=== PATIENT | male | born 1970 | race Two or more races ===

== ENCOUNTER → 2024-01-20 | Outpatient (CLI) | payer MEDICAID ==
[2024-01-20 07:23] LABS: Urine Bacteria None Seen /hpf (None Seen)
[2024-01-20 07:38] LABS: Basophils # (auto) 0 10 ^3/uL (0-0.2); Basophils % (auto) 0.3 % (0.0-2.0); Eosinophils # (auto) 0.2 10 ^3/uL (0-0.8); Eosinophils % (auto) 1.4 % (0.0-7.0); Hematocrit 47.8 % (41.0-53.0); Hemoglobin 16.5 g/dL (13.5-17.5); Lymphocytes % (auto) 26.8 % (10.0-50.0); Mean Corpuscular Hemoglobin 30.4 pg (28.0-32.0); Mean Corpuscular Hgb Conc. 34.5 g/dL (32.0-36.0); Mean Corpuscular Volume 88.1 fL (80.0-100.0); Monocytes # (auto) 0.9 10 ^3/uL (0-1.3); Monocytes % (auto) 7.5 % (0.0-12.0); Neutrophils # (auto) 7.2 10 ^3/uL (1.6-8.6); Platelet Count (auto) 186 10^3/uL (140-450); Red Blood Cells 5.43 10^6/uL (4.5-5.90); Red Cell Distribution Width 13.3 % (11.8-14.3); Urine Blood Negative /uL (Negative); Urine Clarity Clear (Clear); Urine Color Yellow (Yellow); Urine Mucus FEW (None Seen); Urine Protein, UAD Negative (Negative); Urine Specific Gravity 1.025 (1.001-1.035); Urine Urobilinogen Normal (Negative); Urine WBC <1 /hpf (0 - 3); Urine pH 5.5 (5.0-9.0); White Blood Cell 11.3 10^3/uL (4.4-10.8)
[2024-01-20 08:02] LABS: Alanine Aminotransferase 60 U/L (7-40); Albumin 4.6 g/dL (3.2-4.8); Alkaline Phosphatase 87 U/L (46-116); Anion Gap 5 (5-15); Aspartate Aminotransferase 22 U/L (13-40); BUN/Creatinine Ratio 10.3 (10.0-20.0); Bilirubin, Total 0.9 mg/dL (0.2-1.0); Blood Urea Nitrogen 9 mg/dL (9-23); Calcium 9.6 mg/dL (8.7-10.4); Carbon Dioxide 28 mmol/L (20-31); Chloride 109 mmol/L (98-107); Cholesterol 184 mg/dL (< 200); Glucose 109 mg/dL (74-106); HDL Cholesterol 50 mg/dL (40-59); LDL Cholesterol 115 mg/dL (< 100); Potassium 4.3 mmol/L (3.5-5.1); Sodium 142 mmol/L (136-145); Triglycerides 164 mg/dL (< 150)
[2024-01-20 08:03] LABS: Total Protein 7.3 g/dL (5.7-8.2)
[2024-01-20 11:15] LABS: Prostate Specific Antigen 0.53 ng/mL (0.0-4.0)
== END | disposition home or self-care (01) ==
LOC: LAB 07:10
DX: I10 Essential (primary) hypertension (principal); Z86.73 Personal history of transient ischemic attack (TIA), and cerebral infarction without residual deficits
CPT/HCPCS: 36415; 80053; 80061; 81001; 82043; 82274; 82306; 82607; 83036; 84153; 84443; 85025

== ENCOUNTER → 2024-02-21 | Outpatient (CLI) | payer MEDICAID ==
[2024-02-21 09:38] LABS: Anion Gap 5 (5-15); Carbon Dioxide 29 mmol/L (20-31); Chloride 108 mmol/L (98-107); Potassium 4.4 mmol/L (3.5-5.1); Sodium 142 mmol/L (136-145)
[2024-02-21 09:39] LABS: Calcium 9.7 mg/dL (8.7-10.4)
[2024-02-21 09:43] LABS: Glucose 104 mg/dL (74-106)
[2024-02-21 09:44] LABS: BUN/Creatinine Ratio 8.7 (10.0-20.0); Blood Urea Nitrogen 8 mg/dL (9-23)
== END | disposition home or self-care (01) ==
LOC: LAB 08:38
PROVIDERS: ATTEND Internal Medicine
DX: I10 Essential (primary) hypertension (principal)
CPT/HCPCS: 36415; 80048

== ENCOUNTER → 2024-02-22 | Outpatient (CLI) | payer MEDICAID ==
[2024-02-22 06:39] LABS: Urine Bacteria None Seen /hpf (None Seen)
[2024-02-22 07:03] LABS: Urine Blood Negative /uL (Negative); Urine Clarity Clear (Clear); Urine Color Light-Yellow (Yellow); Urine Mucus FEW (None Seen); Urine Protein, UAD Negative (Negative); Urine Specific Gravity 1.016 (1.001-1.035); Urine Urobilinogen Normal (Negative); Urine WBC <1 /hpf (0 - 3); Urine pH 5.5 (5.0-9.0)
[2024-02-22 07:12] LABS: Basophils # (auto) 0 10 ^3/uL (0-0.2); Basophils % (auto) 0.3 % (0.0-2.0); Eosinophils # (auto) 0.2 10 ^3/uL (0-0.8); Eosinophils % (auto) 2.7 % (0.0-7.0); Hematocrit 43.9 % (41.0-53.0); Hemoglobin 15.3 g/dL (13.5-17.5); Lymphocytes # (auto) 3.3 10 ^3/uL (0.4-5.4); Lymphocytes % (auto) 42.8 % (10.0-50.0); Mean Corpuscular Hemoglobin 30.9 pg (28.0-32.0); Mean Corpuscular Hgb Conc. 34.8 g/dL (32.0-36.0); Mean Corpuscular Volume 88.8 fL (80.0-100.0); Monocytes # (auto) 0.7 10 ^3/uL (0-1.3); Neutrophils # (auto) 3.5 10 ^3/uL (1.6-8.6); Neutrophils % (auto) 45.2 % (37.0-80.0); Nucleated Red Blood Cells % 0.1 %; Platelet Count (auto) 188 10^3/uL (140-450); Red Blood Cells 4.94 10^6/uL (4.5-5.90); Red Cell Distribution Width 13.3 % (11.8-14.3); White Blood Cell 7.8 10^3/uL (4.4-10.8)
[2024-02-22 07:27] LABS: Anion Gap 7 (5-15); Calcium 9.8 mg/dL (8.7-10.4); Carbon Dioxide 27 mmol/L (20-31); Chloride 107 mmol/L (98-107); Sodium 141 mmol/L (136-145)
[2024-02-22 07:33] LABS: Blood Urea Nitrogen 7 mg/dL (9-23); Cholesterol 162 mg/dL (< 200); Glucose 105 mg/dL (74-106); Triglycerides 116 mg/dL (< 150)
[2024-02-22 07:34] LABS: LDL Cholesterol 94 mg/dL (< 100)
[2024-02-22 07:35] LABS: HDL Cholesterol 50 mg/dL (40-59)
[2024-02-22 12:36] LABS: Prostate Specific Antigen 0.53 ng/mL (0.0-4.0)
== END | disposition home or self-care (01) ==
LOC: LAB 06:23
PROVIDERS: ATTEND Internal Medicine
DX: E78.2 Mixed hyperlipidemia
CPT/HCPCS: 36415; 80048; 80061; 81001; 82306; 82607; 83036; 84153; 85025

== ENCOUNTER → 2024-06-19 | Outpatient (CLI) | payer MEDICAID ==
[2024-06-19 06:24] LABS: Urine Bacteria None Seen /hpf (None Seen)
[2024-06-19 06:32] LABS: Basophils # (auto) 0 10 ^3/uL (0-0.2); Basophils % (auto) 0.6 % (0.0-2.0); Eosinophils # (auto) 0.1 10 ^3/uL (0-0.8); Hemoglobin 15.8 g/dL (13.5-17.5); Lymphocytes # (auto) 2.8 10 ^3/uL (0.4-5.4); Lymphocytes % (auto) 38.1 % (10.0-50.0); Mean Corpuscular Hemoglobin 30.5 pg (28.0-32.0); Mean Corpuscular Hgb Conc. 34.4 g/dL (32.0-36.0); Mean Corpuscular Volume 88.6 fL (80.0-100.0); Monocytes # (auto) 0.7 10 ^3/uL (0-1.3); Monocytes % (auto) 8.9 % (0.0-12.0); Neutrophils # (auto) 3.7 10 ^3/uL (1.6-8.6); Neutrophils % (auto) 50.4 % (37.0-80.0); Platelet Count (auto) 182 10^3/uL (140-450); Red Blood Cells 5.19 10^6/uL (4.5-5.90); Red Cell Distribution Width 12.7 % (11.8-14.3); White Blood Cell 7.4 10^3/uL (4.4-10.8)
[2024-06-19 07:08] LABS: Partial Thromboplastin Time 27.9 SEC (24.5-34.5); Prothrombin Time 10.6 sec (9.3-11.8)
[2024-06-19 07:37] LABS: Albumin 4.7 g/dL (3.2-4.8); Alkaline Phosphatase 76 U/L (46-116); Anion Gap 7 (5-15); Aspartate Aminotransferase 21 U/L (13-40); Blood Urea Nitrogen 11 mg/dL (9-23); Calcium 9.6 mg/dL (8.7-10.4); Carbon Dioxide 28 mmol/L (20-31); Chloride 105 mmol/L (98-107); Cholesterol 145 mg/dL (< 200); HDL Cholesterol 43 mg/dL (40-59); LDL Cholesterol 82 mg/dL (< 100); Potassium 3.9 mmol/L (3.5-5.1); Sodium 140 mmol/L (136-145); Triglycerides 95 mg/dL (< 150)
[2024-06-19 07:38] LABS: Bilirubin, Total 0.7 mg/dL (0.2-1.0)
[2024-06-19 07:39] LABS: Alanine Aminotransferase 41 U/L (7-40); Glucose 112 mg/dL (74-106)
[2024-06-19 08:23] LABS: Urine Blood Negative /uL (Negative); Urine Clarity Clear (Clear); Urine Color Yellow (Yellow); Urine Protein, UAD Negative (Negative); Urine Specific Gravity 1.021 (1.001-1.035); Urine Squamous Epithelial Cell None Seen /hpf (<5); Urine Urobilinogen Normal (Negative); Urine WBC < 1 /HPF (0-3); Urine pH 5.5 (5.0-9.0)
[2024-06-19 10:49] LABS: Prostate Specific Antigen 0.55 ng/mL (0.0-4.0)
== END | disposition home or self-care (01) ==
LOC: LAB 06:05
PROVIDERS: ATTEND Internal Medicine
DX: R29.898 Other symptoms and signs involving the musculoskeletal system (principal); E78.2 Mixed hyperlipidemia; R79.1 Abnormal coagulation profile; D64.9 Anemia, unspecified; Z86.73 Personal history of transient ischemic attack (TIA), and cerebral infarction without residual deficits; I48.0 Paroxysmal atrial fibrillation; I11.0 Hypertensive heart disease with heart failure; I50.9 Heart failure, unspecified; Z79.899 Other long term (current) drug therapy
CPT/HCPCS: 36415; 80053; 80061; 81001; 82607; 83036; 83880; 84153; 84443; 85025; 85610; 85730

== ENCOUNTER → 2024-06-28 | Outpatient (CLI) | payer MEDICAID ==
[2024-06-28 09:03] LABS: Chloride 104 mmol/L (98-107); Potassium 4.1 mmol/L (3.5-5.1); Sodium 139 mmol/L (136-145)
[2024-06-28 09:04] LABS: Anion Gap 6 (5-15); Carbon Dioxide 29 mmol/L (20-31)
[2024-06-28 09:09] LABS: BUN/Creatinine Ratio 9.2 (10.0-20.0); Glucose 105 mg/dL (74-106)
[2024-06-28 09:21] LABS: Blood Urea Nitrogen 9 mg/dL (9-23)
== END | disposition home or self-care (01) ==
LOC: LAB 08:34
PROVIDERS: ATTEND Internal Medicine Interventional Cardiology
DX: I48.0 Paroxysmal atrial fibrillation (principal)
CPT/HCPCS: 36415; 80048

== ENCOUNTER 2024-08-09 06:45 | Inpatient (IN) | payer MEDICAID ==
[~2024-08-09] VITALS: Ht 180.3 cm; Wt 98.8 kg
--- NOTE | 2024-08-09 06:58 | ED.PDOC ---
GI ASSESSMENT HPI Comments 54 year old male PRAKASH presents to the ED with chief complaint of abdominal pain. Patient reports that he has been experiencing diffuse abdominal pain with associated nausea, vomiting, headache, and dizziness for the past 4 days, worsening around 5:30am this morning. Patient relays that he has history of CVA with no deficits noted. Patient denies any diarrhea, fever, chills, chest pain, hematemesis, or melena. Chief Complaint: Abdominal Pain Time Seen by MD: 06:56 Reviewed Notes: Nurses Notes, Occupational Therapist Home Based Notes, Medications, Allergies Allergies: Coded Allergies: NO KNOWN ALLERGIES (Unverified , 08/09/24) Home Meds Reported Medications Lisinopril (Lisinopril) 5 Mg Tab, 1 TAB PO DAILY 08/09/24 Atorvastatin Calcium (ATORVASTATIN CALCIUM) 40 Mg Tab, 1 TAB PO DAILY 08/09/24 Fluoxetine Hcl (Fluoxetine Hcl) 20 Mg Cap, 1 CAP PO DAILY 08/09/24 Apixaban Base (ELIQUIS) 5 Mg Tab, 1 TAB PO BID 08/09/24 Information Source: Patient, Emergency Med Personnel Mode of Arrival: EMS Timing: Days Duration: Since onset Prehospital treatment: None Quality: Aching Vomitus: Watery Stool: Normal Severity: Moderate Recent: None Recent Hx of: None Pain Location: Diffuse Modifying Factors: Nothing Associated sign and symptoms: Nausea, Vomiting, Abdominal Pain Past Medical History PAST MEDICAL HISTORY: CVA, High Lipids, HTN Surgical History: Denies all surgeries Family History Family History: Reviewed,noncontributory to illness Social History Smoker: Non-Smoker Alcohol: Denies ETOH Use Drugs: Denies Drug Use Lives In: Home Constitutional: denies: chills, diaphoresis, fatigue, fever, malaise, sweats, weakness, others EENTM: denies: blurred vision, double vision, ear bleeding, ear discharge, ear drainage, ear pain, ear ringing, eye pain, eye redness, hearing loss, mouth pain, mouth swelling, nasal discharge, nose bleeding, nose congestion, nose pain, photophobia, tearing, throat pain, throat swelling, voice changes, others Respiratory: denies: cough, hemoptysis, orthopnea, SOB at rest, shortness of breath, SOB with excertion, stridor, wheezing, others Cardiovascular: denies: chest pain, dizzy spells, diaphoresis, Dyspnea on exertion, edema, irregular heart beat, left arm pain, lightheadedness, palpitations, PND, syncope, others Gastrointestinal: reports: abdominal pain, nausea, vomiting; denies: abdomen distended, blood streaked bowels, constipated, diarrhea, dysphagia, difficulty swallowing, hematemesis, melena, poor appetite, poor fluid intake, rectal bleeding, rectal pain, others Genitourinary: denies: burning, dysuria, flank pain, frequency, hematuria, incontinence, penile discharge, penile sore, pain, testicle pain, testicle swelling, urgency, others Neurological: reports: dizziness, headache; denies: fainting, left sided numbness, left sided weakness, numbness, paresthesia, pre-existing deficit, right sided numbness, right sided weakness, seizure, speech problems, tingling, tremors, weakness, others Musculoskeletal: denies: back pain, gout, joint pain, joint swelling, muscle pain, muscle stiffness, neck pain, others Integumetry: denies: bruises, change in color, change in hair/nails, dryness, laceration, lesions, lumps, rash, wounds, others Allergic/Immunocompromised: denies: Difficulty Healing, Frequent Infections, Hives, Itching, others Hematologic/Lymphatic: denies: anemia, blood clots, easy bleeding, easy bruising, swollen glands, others Endocrine: denies: excessive hunger, excessive sweating, excessive thirst, excessive urination, flushing, intolerance to cold, intolerance to heat, unexplained weight gain, unexplained weight loss, others Psychiatric: denies: anxiety, bipolar disorder, depression, hopeless, panic disorder, schizophrenia, sleepless, suicidal, others All Other Systems: Reviewed and Negative Physical Exam General Appearance: Moderate Distress, Normal HEENT: Normal ENT Inspection, PERRL/EOMI Neck: Full Range of Motion, Non-Tender, Normal, Normal Inspection Respiratory: Chest Non-Tender, Lungs Clear, No Accessory Muscle Use, No Respiratory Distress, Normal Breath Sounds Cardiovascular: No Edema, No JVD, No Murmur, No Gallop, Normal Peripheral Pulses, Regular Rate/Rhythm Breast Exam: Deferred Gastrointestinal: No Organomegaly, Non Tender, No Pulsatile Mass, Normal Bowel Sounds, Soft Genitalia: Deferred Pelvic: Deferred Rectal: Deferred Extremities: No calf tenderness, Normal capillary refill, Normal inspection, Normal range of motion, Non-tender, No pedal edema Musculoskeletal : Apperance: Normal Neurologic: Alert, devops consultant II-XII nml as Tested, No Motor Deficits, Normal Affect, Normal Mood, No Sensory Deficits Cerebellar Function: NOT DONE Reflexes: NOT DONE Skin: Dry, Normal Color, Warm Peripheral Pulses: 3+ Radial (R), 3+ Radial (L) Lymphatic: No Adenopathy Was a procedure done? Was a procedure done?: No GI differential Dx Differential Diagnosis: Constipation, Diverticular disease, Esophagitis, Gastritis/PUD, Gastroenteritis, Dehydration, Electrolyte Imbalance, Food Poisoning, Bacterial, Viral X-Ray, Labs, Meds, VS Vital Signs Date Time Temp Pulse Resp B/P (MAP) Pulse Ox O2 Delivery O2 Flow Rate FiO2 08/09/24 09:49 57 17 127/74 08/09/24 09:35 97.5 57 17 127/74 (91) 97 97.5 08/09/24 09:20 Room Air* 0 21 08/09/24 06:55 96.3 60 18 133/88 (103) 96 96.3 Lab Test 08/09/24 07:06 Range/Units White Blood Count 12.1 H 4.4-10.8 10^3/uL Red Blood Count 5.49 4.5-5.90 10^6/uL Hemoglobin 16.6 13.5-17.5 g/dL Hematocrit 49.1 41.0-53.0 % Mean Corpuscular Volume 89.4 80.0-100.0 fL Mean Corpuscular Hemoglobin 30.3 28.0-32.0 pg Mean Corpuscular Hemoglobin Concent 33.9 32.0-36.0 g/dL Red Cell Distribution Width 12.7 11.8-14.3 % Platelet Count 182 140-450 10^3/uL Mean Platelet Volume 10.1 6.9-10.8 fL Neutrophils (%) (Auto) 52.4 37.0-80.0 % Lymphocytes (%) (Auto) 39.1 10.0-50.0 % Monocytes (%) (Auto) 6.4 0.0-12.0 % Eosinophils (%) (Auto) 1.7 0.0-7.0 % Basophils (%) (Auto) 0.4 0.0-2.0 % Neutrophils # (Auto) 6.3 1.6-8.6 10 ^3/uL Lymphocytes # (Auto) 4.7 0.4-5.4 10 ^3/uL Monocytes # (Auto) 0.8 0-1.3 10 ^3/uL Eosinophils # (Auto) 0.2 0-0.8 10 ^3/uL Basophils # (Auto) 0 0-0.2 10 ^3/uL Nucleated Red Blood Cells 0.0 % Sodium Level 141 136-145 mmol/L Potassium Level 3.1 L 3.5-5.1 mmol/L Chloride Level 109 H 98-107 mmol/L Carbon Dioxide Level 23 20-31 mmol/L Anion Gap 9 5-15 Blood Urea Nitrogen 11 9-23 mg/dL Creatinine 0.90 0.700-1.30 mg/dL Glomerular Filtration Rate Calc 100 >90 mL/min BUN/Creatinine Ratio 12.2 10.0-20.0 Serum Glucose 194 H 74-106 mg/dL Calcium Level 9.6 8.7-10.4 mg/dL Current Medications Medications (Trade) Dose Ordered Sig/Naomi Route Start Time Stop Time Status Last Admin Ondansetron HCl (Zofran) 4 mg ONCE ONCE IV 08/09/24 07:00 08/09/24 07:01 DC 08/09/24 09:41 Sodium Chloride 1,000 ml @ 1,000 mls/hr Q1H ONCE IVB 08/09/24 07:00 08/09/24 07:59 DC 08/09/24 09:42 Morphine Sulfate 4 mg ONCE ONCE IV 08/09/24 07:00 08/09/24 07:01 DC 08/09/24 09:49 Potassium Bicarbonate (Klor-Con/Ef) 25 meq ONCE ONCE PO 08/09/24 09:15 08/09/24 09:16 DC 08/09/24 09:41 Patient alert pain Complaining of dizziness nausea vomiting. Vitals stable. Moving all extremities. No sign of any stroke. Abdomen is soft nontender. Establish intravenous access. Was given fluids. Was given morphine. Was given Zofran. Continue to monitor. On re-evaluation he does have good muscle strength. Blood sugar elevated. Explained to the patient that he will be admitted for further workup. Time of 1ST Reevaluation: 07:56 Reevaluation 1ST: Unchanged Patient Education/Counseling: Diagnosis, Treatment Family Education/Counseling: No Family Present Additional Information The following tests were ordered, and results were reviewed by me: CBC, BMP Additional Information was gathered from interviewing the following independent historians: EMS I reviewed and agreed with the following test results read by other providers: None I discussed treatment and results with medical personnel and: patient Comprehensive systems review obtained and negative except for what is stated in the HPI. Departure 1 Departure Time of Disposition: 07:13 Impression: Primary Impression: Autonomic disorder Additional Impression: Uncontrolled diabetes mellitus Qualified Codes: E13.65 - Other specified diabetes mellitus with hyperglycemia Disposition: ADMITTED INPATIENT Admit to: Med Surg Condition: Guarded Comments Spoke to and examined patient at 0656, discussing treatment plan at this time. Spoke to the patient at 10:30 a.m. he stated that he is still dizzy can not ambulate. Has good muscle strength in all extremities. Critical Care Note Critical Care Time?: No Stability Stability form required: No Heart Score Heart Score: Heart Score Response (Comments) Value History N/A 0 EKG N/A 0 Age N/A 0 Risk Factors N/A 0 Troponin N/A 0 Total 0 I personally scribed for MALGORZATA EL MD ([email or web address]) on 08/09/24 at 06:58. Electronically submitted by Federico Shea ([email or web address]). MALGORZATA EL MD August 09, 2024 06:58
[2024-08-09 07:17] LABS: Basophils # (auto) 0 10 ^3/uL (0-0.2); Basophils % (auto) 0.4 % (0.0-2.0); Eosinophils # (auto) 0.2 10 ^3/uL (0-0.8); Eosinophils % (auto) 1.7 % (0.0-7.0); Hematocrit 49.1 % (41.0-53.0); Hemoglobin 16.6 g/dL (13.5-17.5); Lymphocytes # (auto) 4.7 10 ^3/uL (0.4-5.4); Lymphocytes % (auto) 39.1 % (10.0-50.0); Mean Corpuscular Hemoglobin 30.3 pg (28.0-32.0); Mean Corpuscular Hgb Conc. 33.9 g/dL (32.0-36.0); Mean Corpuscular Volume 89.4 fL (80.0-100.0); Monocytes # (auto) 0.8 10 ^3/uL (0-1.3); Monocytes % (auto) 6.4 % (0.0-12.0); Neutrophils # (auto) 6.3 10 ^3/uL (1.6-8.6); Neutrophils % (auto) 52.4 % (37.0-80.0); Platelet Count (auto) 182 10^3/uL (140-450); Red Blood Cells 5.49 10^6/uL (4.5-5.90); Red Cell Distribution Width 12.7 % (11.8-14.3); White Blood Cell 12.1 10^3/uL (4.4-10.8)
[2024-08-09 07:25] LABS: Sodium 141 mmol/L (136-145)
[2024-08-09 07:26] LABS: Anion Gap 9 (5-15); Carbon Dioxide 23 mmol/L (20-31)
[2024-08-09 07:27] LABS: Calcium 9.6 mg/dL (8.7-10.4)
[2024-08-09 07:31] LABS: BUN/Creatinine Ratio 12.2 (10.0-20.0); Blood Urea Nitrogen 11 mg/dL (9-23)
[2024-08-09 07:32] LABS: Chloride 109 mmol/L (98-107); Glucose 194 mg/dL (74-106); Potassium 3.1 mmol/L (3.5-5.1)
[2024-08-09] MEDS: POTASSIUM EFFERVESENT TAB 25 MEQ PO ONE (09:41)
[2024-08-09] MEDS: ONDANSETRON HCL 4 MG/2 ML VIAL IV ONE (09:41)
[2024-08-09] MEDS: SODIUM CHLORIDE 0.9% 1,000 ML IVB ONE (09:42)
[2024-08-09] MEDS: MORPHINE SULFATE 4 MG/ML SYR/VIAL IV ONE (09:49)
--- NOTE | 2024-08-09 11:07 | DVH ---
EXAM: CT HEAD WITHOUT CONTRAST HISTORY: tia COMPARISON: None TECHNIQUE: Axial images of the head were obtained and reformatted in coronal and sagittal planes. All CT scans at this medical facility are performed using dose modulation techniques as appropriate t o a performed exam including the following: Automated exposure control was utilized; adjustment of th e MA and/or KV according to patient size; and use of iterative reconstruction technique. CT Dose: CTDI volume is 60.67 mGy. Dose-length product is 1195.48 mGy*cm FINDINGS: There is no evidence of acute intracranial hemorrhage, mass, mass effect midline shift. There is no h ydrocephalus or extra-axial fluid collection. There is a chronic infarct in the superomedial right ce rebellum. Vega-white matter differentiation is otherwise maintained. The visualized paranasal sinuses and mastoid air cells are clear. The calvarium is intact. IMPRESSION: 1. No acute intracranial process. 2. Chronic infarct in the superomedial right cerebellum. HS:Y
[2024-08-09] MEDS ORDERED: HYDROcodone-ACET 5/325MG TAB PO PRN (12:30)
[2024-08-09] MEDS ORDERED: MORPHINE SULFATE INJ 2 MG/ml SYRG IV PRN (12:30)
[2024-08-09] MEDS ORDERED: DOCUSATE SOD 100 MG CAP PO PRN (12:30)
[2024-08-09] MEDS ORDERED: FLUO-125 PO (12:33)
[2024-08-09] MEDS ORDERED: ATOR40TA52 PO (12:33)
[2024-08-09] MEDS ORDERED: APIX5TAB PO (12:33)
[2024-08-09] MEDS ORDERED: LISI-275 PO (12:33)
[2024-08-09] MEDS ORDERED: KETOROLAC TROMETH 30 MG/ML 1ML VIAL IV ONE (12:45)
--- NOTE | 2024-08-09 12:58 | DVHHP2 ---
History of Present Illness Reason for Visit: Abdominal pain History of Present Illness J Carlos Rosenthal is a 54-year-old male with past medical history of atrial fibrillation, hypertension, CVA in June 2023, hyperlipidemia, and depression, who came to the hospital for abdominal pain. Patent has a history of CVA in June 2023. He has residual right sided weakness and difficulty speaking. The patient was able to tell me that he was vomiting this morning, his head hurts, and he is dizzy. When asking specifics about what happened this morning or what medications he takes he is having a hard time answering me. I called and spoke with his , who told me that she was woken up about 0530 to him vomiting. He told her to call EMS, that he was not feeling well. She states that the emesis did not appear to be bloody or coffee ground in color. She states he has not had diarrhea. She also states that he ambulates with a cane at home, and that he will have intermittent headaches and dizziness at home. She was able to go over his medications with me as well and states he takes Eliguis due to atrial fibrillation and the stroke. He follows with [facility] and is being scheduled for a watchman procedure to help prevent further strokes. Cardiovascular: AFIB, HTN, hyperipidemia [employer]: CVA Past Surgical History: Other (left knee and back) Smoke: No ALCOHOL: none Drugs: None Lives: with Family Domestic Violence: Neg Review of Systems Constitutional: Yes: Malaise, Other (headache); No: Fever, Chills, Sweats, Weakness Eyes: No: Pain, Vision change, Conjunctivae inflammation, Eyelid inflammation, Other, Redness ENT: No: Ear pain, Ear discharge, Nose pain, Nose discharge, Nose congestion, Mouth pain, Mouth swelling, Throat pain, Throat swelling, Other Respiratory: No: Cough, Dry, Shortness of breath, SOB with excertion, Wheezing, Hemoptysis, Pleuritic Pain, Sputum, Wheezing, Other Cardiovascular: No: Chest Pain, Palpitations, Orthopnea, Paroxysmal Noc. Dyspnea, Edema, Lt Headedness, Other Gastrointestinal: Nausea, Vomiting, Abdominal Pain; No: Diarrhea, Constipation, Melena, Hematochezia, Other Genitourinary: No Dysuria, No Frequency, No Incontinence, No Hematuria, No Retention, No Other Musculoskeletal: No: other, neck pain, shoulder pain, arm pain, back pain, hand pain, leg pain, foot pain Skin: No: Rash, Lesions, Jaundice, Bruising, Other Neurological: Other (dizzy); No: Weakness, Numbness, Incoordination, Change in speech, Confusion, Seizures Allergies: Coded Allergies: NO KNOWN ALLERGIES (Unverified , 08/09/24) Exam Vital Signs Vital Signs Date Time Temp Pulse Resp B/P (MAP) Pulse Ox O2 Delivery O2 Flow Rate FiO2 08/09/24 09:49 57 17 127/74 08/09/24 09:35 97.5 97 97.5 08/09/24 09:20 Room Air* 0 21 General Appearance: Alert, Oriented X3, Cooperative, moderate distress HEENT: Atraumatic, PERRLA Respiratory: Clear to auscultation, Normal air movement Cardiovascular: Regular rate, Normal S1, Normal S2, No murmurs Abdominal: Normal bowel sounds, Soft, No tenderness, No hepatospenomegaly Extremities: No clubbing, No cyanosis, No edema, Normal pulses Skin: No rashes, No breakdown Neuro: Other (H/O CVA with right sided weakness and difficult speaking) Psych/Mental Status: Mood NL Labs/Xrays Labs Test 08/09/24 07:06 Range/Units White Blood Count 12.1 H 4.4-10.8 10^3/uL Red Blood Count 5.49 4.5-5.90 10^6/uL Hemoglobin 16.6 13.5-17.5 g/dL Hematocrit 49.1 41.0-53.0 % Mean Corpuscular Volume 89.4 80.0-100.0 fL Mean Corpuscular Hemoglobin 30.3 28.0-32.0 pg Mean Corpuscular Hemoglobin Concent 33.9 32.0-36.0 g/dL Red Cell Distribution Width 12.7 11.8-14.3 % Platelet Count 182 140-450 10^3/uL Mean Platelet Volume 10.1 6.9-10.8 fL Neutrophils (%) (Auto) 52.4 37.0-80.0 % Lymphocytes (%) (Auto) 39.1 10.0-50.0 % Monocytes (%) (Auto) 6.4 0.0-12.0 % Eosinophils (%) (Auto) 1.7 0.0-7.0 % Basophils (%) (Auto) 0.4 0.0-2.0 % Neutrophils # (Auto) 6.3 1.6-8.6 10 ^3/uL Lymphocytes # (Auto) 4.7 0.4-5.4 10 ^3/uL Monocytes # (Auto) 0.8 0-1.3 10 ^3/uL Eosinophils # (Auto) 0.2 0-0.8 10 ^3/uL Basophils # (Auto) 0 0-0.2 10 ^3/uL Nucleated Red Blood Cells 0.0 % Sodium Level 141 136-145 mmol/L Potassium Level 3.1 L 3.5-5.1 mmol/L Chloride Level 109 H 98-107 mmol/L Carbon Dioxide Level 23 20-31 mmol/L Anion Gap 9 5-15 Blood Urea Nitrogen 11 9-23 mg/dL Creatinine 0.90 0.700-1.30 mg/dL Glomerular Filtration Rate Calc 100 >90 mL/min BUN/Creatinine Ratio 12.2 10.0-20.0 Serum Glucose 194 H 74-106 mg/dL Calcium Level 9.6 8.7-10.4 mg/dL EXAM: CT HEAD WITHOUT CONTRAST FINDINGS: There is no evidence of acute intracranial hemorrhage, mass, mass effect midline shift. There is no hydrocephalus or extra-axial fluid collection. There is a chronic infarct in the superomedial right cerebellum. Vega-white matter differentiation is otherwise maintained. The visualized paranasal sinuses and mastoid air cells are clear. The calvarium is intact. IMPRESSION: 1. No acute intracranial process. 2. Chronic infarct in the superomedial right cerebellum. TECHNIQUE: Multiple real-time sonographic images of the abdomen were obtained. FINDINGS: The liver is homogenous in echogenicity. The liver measures 14.4 cm. No intrahepatic biliary ductal dilatation is noted. The gallbladder wall measures 0.28cm and is unremarkable. No gallstones or sludge is seen. The common duct measures 0.32 cm and is unremarkable. No pericholecystic fluid is noted. The right kidney measures 10.9 cm. No hydronephrosis. The left kidney measures 11.5 cm. No hydronephrosis. The spleen measures 9.5cm, within normal limits. The echogenicity is within normal limits. The pancreas is not well visualized due to obscuration from bowel gas. The visualized portions of the IVC and aorta are grossly unremarkable. Aorta measures 2.2 cm IMPRESSION: 1. Liver measures 14.4 cm long. 2. Gallbladder is normal 3. Right kidney measures 10.9 cm. Left kidney measures 11.5 cm. Assessment/Plan Assessment/Plan Assessment: Autonomic disorder, Intractable headache, Abdominal pain, Nausea and vomiting, Hyperglycemia, Hypertension, Hyperlipidemia, Atrial Fibrillation, Plan: Admit to Tele, Abdominal ultrasound, IV hydration, IV antibiotics, Consider Neurology consult if dizziness and headache persist, Home medications reconciled, Plan discussed with: Patient My Orders Orders - YOJANA ALEJO Procedure Category Date Status Time Admit ADMIT 08/09/24 Transmitted 12:29 Code Status CODE 08/09/24 Transmitted 12:29 0.9% Ns 1000 Ml PHA 08/09/24 Transmitted 12:30 Hydrocodone-Acet PHA 08/09/24 Transmitted 5/325mg Tab (Corinne 12:30 Ondansetron Hcl PHA 08/09/24 Transmitted (Zofran) 12:30 Docusate Sodium PHA 08/09/24 Transmitted Capsule (Colace 12:30 Fall Risk Precautions SHELBY 08/09/[address] 12:29 Complete Blood Count LAB 08/10/24 Verified 04:00 Comprehensive LAB 08/10/24 Verified Metabolic Panel 04:00 Pt Request For Service PT 08/09/24 Transmitted 12:29 Condition: Serious SHELBY 08/09/24 Transmitted 12:29 Acetaminophen Tablet PHA 08/09/24 Transmitted (Tylenol Tablet) 12:30 Clear Liq Diet DIET 08/09/24 Transmitted Lunch Morphine Sulfate PHA 08/09/24 Transmitted Injection 12:30 Abdomen Complete US 08/09/24 Transmitted Sonogram 12:29 Apixaban (Eliquis) PHA 08/09/24 Verified 22:00 Fluoxetine Capsule PHA 08/10/24 Verified (Prozac Capsule) 10:00 Lisinopril Tablet PHA 08/10/24 Verified (Zestril Tablet) 10:00 (Nf) Atorvastatin PHA 08/10/24 Verified Calcium 10:00 Date of Service: August 09, 2024 Billing Provider: YOJANA ALEJO Common Visit Codes: [id number] INP/OBS CARE (MOD) YOJANA ALEJO August 09, 2024 12:58
--- NOTE | 2024-08-09 14:28 | DVH ---
INDICATION: Abdominal pain, Nausea, vomiting TECHNIQUE: Multiple real-time sonographic images of the abdomen were obtained. COMPARISON: None FINDINGS: The liver is homogenous in echogenicity. The liver measures 14.4 cm. No intrahepatic bilia ry ductal dilatation is noted. The gallbladder wall measures 0.28cm and is unremarkable. No gallstones or sludge is seen. The com mon duct measures 0.32 cm and is unremarkable. No pericholecystic fluid is noted. The right kidney measures 10.9 cm. No hydronephrosis. The left kidney measures 11.5 cm. No hydronep hrosis. The spleen measures 9.5cm, within normal limits. The echogenicity is within normal limits. The pancreas is not well visualized due to obscuration from bowel gas. The visualized portions of the IVC and aorta are grossly unremarkable. Aorta measures 2.2 cm IMPRESSION: 1. Liver measures 14.4 cm long. 2. Gallbladder is normal 3. Right kidney measures 10.9 cm. Left kidney measures 11.5 cm.
[2024-08-09] MEDS: ONDANSETRON HCL 4 MG/2 ML VIAL IV PRN (19:06)
[2024-08-09] MEDS: MORPHINE SULFATE INJ 2 MG/ml SYRG IM ONE (20:36)
[2024-08-09] MEDS: SODIUM CHLORIDE 0.9% 1,000 ML IV SCH (20:36)
[2024-08-09] MEDS: KETOROLAC TROMETH 30 MG/ML 1ML VIAL IV ONE (20:38)
[2024-08-09 20:59] VITALS: RESP 18; O2SAT 91
[2024-08-09] MEDS: metroNIDAZOLE 500MG/100ML 100 ML IV SCH (22:11)
[2024-08-09] MEDS: ATORVASTATIN 20 MG TAB PO SCH (22:12)
[2024-08-09] MEDS: APIXABAN 5 MG TAB PO SCH (22:12)
[2024-08-10 05:52] LABS: Basophils # (auto) 0 10 ^3/uL (0-0.2); Basophils % (auto) 0.1 % (0.0-2.0); Eosinophils # (auto) 0 10 ^3/uL (0-0.8); Eosinophils % (auto) 0.2 % (0.0-7.0); Hematocrit 43.6 % (41.0-53.0); Hemoglobin 14.8 g/dL (13.5-17.5); Lymphocytes # (auto) 2.6 10 ^3/uL (0.4-5.4); Lymphocytes % (auto) 21.7 % (10.0-50.0); Mean Corpuscular Hemoglobin 30.1 pg (28.0-32.0); Mean Corpuscular Hgb Conc. 33.9 g/dL (32.0-36.0); Mean Corpuscular Volume 88.9 fL (80.0-100.0); Monocytes # (auto) 1.1 10 ^3/uL (0-1.3); Monocytes % (auto) 9.3 % (0.0-12.0); Neutrophils # (auto) 8.3 10 ^3/uL (1.6-8.6); Neutrophils % (auto) 68.7 % (37.0-80.0); Platelet Count (auto) 155 10^3/uL (140-450); Red Blood Cells 4.91 10^6/uL (4.5-5.90); Red Cell Distribution Width 12.9 % (11.8-14.3); White Blood Cell 12.1 10^3/uL (4.4-10.8)
[2024-08-10 06:09] LABS: Alanine Aminotransferase 33 U/L (7-40); Alkaline Phosphatase 66 U/L (46-116); Anion Gap 9 (5-15); Aspartate Aminotransferase 16 U/L (13-40); BUN/Creatinine Ratio 8.5 (10.0-20.0); Carbon Dioxide 26 mmol/L (20-31); Glucose 94 mg/dL (74-106); Potassium 3.5 mmol/L (3.5-5.1); Sodium 144 mmol/L (136-145)
[2024-08-10 06:10] LABS: Bilirubin, Total 0.6 mg/dL (0.2-1.0)
[2024-08-10 06:27] LABS: Blood Urea Nitrogen 7 mg/dL (9-23); Calcium 8.7 mg/dL (8.7-10.4); Chloride 109 mmol/L (98-107)
[2024-08-10 07:50] VITALS: PULSE 75; RESP 14; O2SAT 94
[2024-08-10] MEDS: FLUoxetine HCL 20 MG CAP PO SCH (09:46)
[2024-08-10] MEDS: LISINOPRIL 5 MG TAB PO SCH (09:47)
[2024-08-10] MEDS: MECLIZINE HCL 25 MG TAB PO PRN (10:54)
[2024-08-10] MEDS: ACETAMINOPHEN 325 MG TAB PO PRN (13:22)
--- NOTE | 2024-08-10 15:09 | DVHPN2 ---
Subjective Patient reports that he had episode of bloody emesis earlier. Reports having generalized weakness. Reviewed: Care Plan, H&P Changes from previous H/P or p: No Changes Eyes: No Pain, No Vision change, No Conjunctivae inflammation, No Eyelid inflammation, No Other, No Redness ENT: No Ear pain, No Ear discharge, No Nose pain, No Nose discharge, No Nose congestion, No Mouth pain, No Mouth swelling, No Throat pain, No Throat swelling, No Other Cardiovascular: No Chest Pain, No Palpitations, No Orthopnea, No Paroxysmal Noc. Dyspnea, No Edema, No Lt Headedness, No Other Respiratory: No Cough, No Dry, No Shortness of breath, No SOB with excertion, No Wheezing, No Hemoptysis, No Pleuritic Pain, No Sputum, No Other Gastrointestinal: Nausea, Vomiting, Abdominal Pain; No Diarrhea, No Constipation, No Melena, No Hematochezia, No Other Genitourinary: No Dysuria, No Frequency, No Incontinence, No Hematuria, No Retention, No Other Musculoskeletal: No other, No neck pain, No shoulder pain, No arm pain, No back pain, No hand pain, No leg pain, No foot pain Skin: No Rash, No Lesions, No Jaundice, No Bruising, No Other Objective Vitals Vital Signs Date Time Temp Pulse Resp B/P (MAP) Pulse Ox O2 Delivery O2 Flow Rate FiO2 08/10/24 12:00 98.8 55 16 106/67 (80) 93 98.8 08/10/24 07:50 Room Air* 0 21 Intake/Output Intake and Output 08/10/24 07:00 Intake Total 2325 ml Balance 2325 ml Intake IV Total 2325 ml General Appearance: Alert, Oriented X3, Cooperative, No acute distress Medications Current Medications Medications Dose Ordered Sig/Naomi Route Start Time Stop Time Status Last Admin Dose Admin Sodium Chloride 1,000 ml @ 75 mls/hr [id number] IV 08/09/24 12:30 08/10/24 05:43 75 MLS/HR Acetaminophen/ Hydrocodone Bitart 1 tab Q4HP PRN PO 08/09/24 12:30 Ondansetron HCl 4 mg Q4HP PRN IV 08/09/24 12:30 08/10/24 10:54 4 MG Docusate Sodium 100 mg BIDPRN PRN PO 08/09/24 12:30 Acetaminophen 650 mg Q6HP PRN PO 08/09/24 12:30 08/10/24 13:22 650 MG Morphine Sulfate 2 mg Q4HPRN PRN IV 08/09/24 12:30 Fluoxetine HCl 20 mg DAILY PO 08/10/24 10:00 08/10/24 09:46 20 MG Lisinopril 5 mg DAILY PO 08/10/24 10:00 08/10/24 09:47 5 MG Atorvastatin Calcium 40 mg HS PO 08/09/24 22:00 08/09/24 22:12 40 MG Metronidazole 100 ml @ 100 mls/hr Q8HR IV 08/09/24 22:00 08/10/24 13:34 100 MLS/HR Meclizine HCl 25 mg [id number] PRN PO 08/09/24 18:00 08/10/24 10:54 25 MG Laboratory Results Laboratory Tests 08/10/24 05:25 Chemistry Test 08/10/24 05:25 Albumin 4.0 g/dL (3.2-4.8) Calcium Level 8.7 mg/dL (8.7-10.4) Total Protein 6.0 g/dL (5.7-8.2) LFT Test 08/10/24 05:25 Alanine Aminotransferase (ALT) 33 U/L (7-40) Alkaline Phosphatase 66 U/L (46-116) Aspartate Amino Transferase (AST) 16 U/L (13-40) Total Bilirubin 0.6 mg/dL (0.2-1.0) HgA1c, TSH Test 08/10/24 05:25 Hemoglobin A1c 5.4 % A1C (<5.7) Labs and/or images reviewed: Labs reviewed by me, Image(s) reviewed by me Assessment/Plan Assessment/Plan -rule out acute CVA -rule out GI bleed -recent CVA -obesity -atrial fibrillation -primary hypertension -abdominal pain, rule out acute pathology including possible colitis/diverticulitis -? PFO Plan: -stop Eliquis -CT scan of the abdomen and pelvis with IV contrast -MRI of the brain -physical therapy consultation -FOBT -continue clear liquid diet -PPI -repeat labs in a.m. Total time spent with patient discussing and formulating plan of care: 35 minutes. This medical document was created using an electronic medical record system with Dragon computerized dictation system. Although this document has been carefully reviewed, there may still be some phonetic and typographical errors. These areas are purely typographical due to imperfections of the software programs, and do not reflect any compromise in the patient's medical care. Plan discussed with: Patient, Daughter, Other (RN) My Orders Orders - ANNETTE CERVANTES NP Procedure Category Date Status Time Ct Ab Pel With Iv Con CT 08/10/24 Logged Only 14:55 Basic Metabolic Panel LAB 08/11/24 Verified 04:00 Hemoglobin & LAB 08/11/24 Verified Hematocrit 04:00 Brain Head Wo Contrast MRI 08/10/24 Logged 14:58 Pt Request For Service PT 08/10/24 Transmitted 15:04 Date of Service: August 10, 2024 Billing Provider: ANNETTE CERVANTES NP Common Visit Codes: [id number] INP/OBS CARE(HIGH) ANNETTE CERVANTES NP August 10, 2024 15:09
[2024-08-10] MEDS: IOHEXOL 300 MG/ML 100ML BOTTLE IJ ONE (16:29)
--- NOTE | 2024-08-10 17:25 | DVH ---
Exam: CT CT AB PEL WITH IV CON ONLY History: Epigastric pain, hematemesis, left lower quadrant pain Comparison Study: None TECHNIQUE: Multidetector CT of the abdomen and pelvis with IV contrast. Axial, coronal and sagittal m ultiplanar reformats were obtained from the axial data set by the technologist. Radiation Dose Information: CT Dose: CTDI volume is 15.76 mGy. Dose-length product is 917.26 mGy*cm FINDINGS: Bibasilar atelectasis. Partially visualized heart is unremarkable. Hepatic steatosis. Otherwise, liver, spleen, gallbladder, pancreas adrenal glands unremarkable. Mild nonspecific bilateral perirenal fat stranding. Otherwise, kidneys, ureters and urinary bladder are unremarkable. Prostate is normal in size with Foci of calcification. Mild gastric wall thickening. Mild wall Thickening of proximal small bowel loops. The remainder of the small bowel loops are unremarkable. Appendix is unremarkable. Sigmoid diverticulosis without dive rticulitis. Small to moderate amount of fecal material within the colon. No evidence of intraperitoneal free air or free fluid. No evidence of aortic aneurysm or dissection. No significant lymphadenopathy. Soft tissues are unremarkable. No destructive osseous lesions are noted. IMPRESSION: Mild wall thickening of the stomach and proximal small bowel loops which may be due to inadequate dis tention/gastritis. Small to moderate amount of fecal material within the colon. Sigmoid diverticulosis without diverticu litis.
[2024-08-10 18:35] VITALS: BP 133/76; PULSE 55; RESP 17; TEMP 98.1; O2SAT 96
[2024-08-10 20:00] VITALS: PULSE 60; RESP 18; O2SAT 98
[2024-08-10 21:00] VITALS: BP 112/82; PULSE 60; RESP 18; TEMP 98.1; O2SAT 98
[2024-08-11] VITALS (7 sets, daily range): BP systolic 95–132; BP diastolic 55–89; PULSE 56–66; RESP 15–20; TEMP 97.9–98.7; O2SAT 92–100
[2024-08-11 06:14] LABS: Hematocrit 42.5 % (41.0-53.0); Hemoglobin 14.8 g/dL (13.5-17.5)
[2024-08-11 06:39] LABS: Calcium 9.2 mg/dL (8.7-10.4); Sodium 142 mmol/L (136-145)
[2024-08-11 06:40] LABS: Anion Gap 8 (5-15); Carbon Dioxide 26 mmol/L (20-31)
[2024-08-11 06:45] LABS: BUN/Creatinine Ratio 7.1 (10.0-20.0); Glucose 97 mg/dL (74-106)
[2024-08-11 06:51] LABS: Blood Urea Nitrogen 6 mg/dL (9-23); Chloride 108 mmol/L (98-107); Potassium 3.4 mmol/L (3.5-5.1)
[2024-08-11 10:25] LABS: Hepatitis B Surface Antigen Negative (Negative)
[2024-08-11 10:26] LABS: Hepatitis C Antibody Negative (Negative)
--- NOTE | 2024-08-11 11:28 | DVHPN2 ---
Subjective Patient states that he feels better. Denies any abdominal pain at this time. Reviewed: Care Plan, H&P Changes from previous H/P or p: No Changes Eyes: No Pain, No Vision change, No Conjunctivae inflammation, No Eyelid inflammation, No Other, No Redness ENT: No Ear pain, No Ear discharge, No Nose pain, No Nose discharge, No Nose congestion, No Mouth pain, No Mouth swelling, No Throat pain, No Throat swelling, No Other Cardiovascular: No Chest Pain, No Palpitations, No Orthopnea, No Paroxysmal Noc. Dyspnea, No Edema, No Lt Headedness, No Other Respiratory: No Cough, No Dry, No Shortness of breath, No SOB with excertion, No Wheezing, No Hemoptysis, No Pleuritic Pain, No Sputum, No Other Gastrointestinal: Nausea, Vomiting, Abdominal Pain; No Diarrhea, No Constipation, No Melena, No Hematochezia, No Other Genitourinary: No Dysuria, No Frequency, No Incontinence, No Hematuria, No Retention, No Other Musculoskeletal: No other, No neck pain, No shoulder pain, No arm pain, No back pain, No hand pain, No leg pain, No foot pain Skin: No Rash, No Lesions, No Jaundice, No Bruising, No Other Objective Vitals Vital Signs Date Time Temp Pulse Resp B/P (MAP) Pulse Ox O2 Delivery O2 Flow Rate FiO2 08/11/24 10:17 116/72 08/11/24 08:36 98.7 60 16 93 98.7 08/11/24 08:00 Room Air* 0 21 Intake/Output Intake and Output 08/11/24 07:00 Intake Total 600 ml Output Total 900 ml Balance -300 ml Intake Oral 400 ml IV Total 200 ml Output Urine Total 900 ml General Appearance: Alert, Oriented X3, Cooperative, No acute distress HEENT: PERRLA Cardiovascular: Normal S1, Normal S2 Musculoskeletal: Normal sensory function, Normal motor function Skin: Dry, Intact Psych/Mental Status: Mental status NL, Mood NL Medications Current Medications Medications Dose Ordered Sig/Naomi Route Start Time Stop Time Status Last Admin Dose Admin Sodium Chloride 1,000 ml @ 75 mls/hr [id number] IV 08/09/24 12:30 08/11/24 06:42 75 MLS/HR Acetaminophen/ Hydrocodone Bitart 1 tab Q4HP PRN PO 08/09/24 12:30 Ondansetron HCl 4 mg Q4HP PRN IV 08/09/24 12:30 08/10/24 21:53 4 MG Docusate Sodium 100 mg BIDPRN PRN PO 08/09/24 12:30 Acetaminophen 650 mg Q6HP PRN PO 08/09/24 12:30 08/10/24 13:22 650 MG Morphine Sulfate 2 mg Q4HPRN PRN IV 08/09/24 12:30 Fluoxetine HCl 20 mg DAILY PO 08/10/24 10:00 08/11/24 10:17 20 MG Lisinopril 5 mg DAILY PO 08/10/24 10:00 08/11/24 10:17 5 MG Atorvastatin Calcium 40 mg HS PO 08/09/24 22:00 08/10/24 22:02 40 MG Metronidazole 100 ml @ 100 mls/hr Q8HR IV 08/09/24 22:00 08/11/24 06:47 100 MLS/HR Meclizine HCl 25 mg [id number] PRN PO 08/09/24 18:00 08/10/24 10:54 25 MG Pantoprazole Sodium 40 mg BID IV 08/11/24 22:00 Apixaban 5 mg BID PO 08/11/24 22:00 Ceftriaxone Sodium 50 ml @ 100 mls/hr DAILY@09 IV 08/11/24 10:41 Laboratory Results Laboratory Tests 08/10/24 05:25 08/11/24 05:37 Chemistry Test 08/11/24 05:37 Calcium Level 9.2 mg/dL (8.7-10.4) Labs and/or images reviewed: Labs reviewed by me, Image(s) reviewed by me Assessment/Plan Assessment/Plan -rule out acute CVA -rule out GI bleed -recent CVA -obesity -atrial fibrillation -primary hypertension -abdominal pain, rule out acute pathology including possible colitis/diverticulitis -? PFO Plan: Events: Patient states that he is feeling better. Abdominal pain has improved. No nausea and vomiting. CT scan of the abdomen pelvis reviewed. -continue Flagyl, add Rocephin -unable to perform MRI of the brain given patient reports shrapnel in his right hand with pain noted during previous MRI -three-view x-ray of right hand -physical therapy consultation : Pending -FOBT Advanced to mechanical soft diet -PPI -repeat labs in a.m. Total time spent with patient discussing and formulating plan of care: 35 minutes. This medical document was created using an electronic medical record system with [employer] dictation system. Although this document has been carefully reviewed, there may still be some phonetic and typographical errors. These areas are purely typographical due to imperfections of the software programs, and do not reflect any compromise in the patient's medical care. Plan discussed with: Patient, Other (RN) My Orders Orders - ANNETTE CERVANTES NP Procedure Category Date Status Time Ct Ab Pel With Iv Con CT 08/10/24 Resulted Only 14:55 Pt Request For Service PT 08/10/24 Logged 15:04 Sod Chl 0.9%/ Kcl PHA 08/11/24 In Process 40meq 10:15 Pantoprazole PHA 08/11/24 In Process (Protonix) 22:00 Apixaban (Eliquis) PHA 08/11/24 In Process 22:00 Ceftriaxone 1gm/50ml PHA 08/11/24 In Process D5w (Rocephin) 10:41 Date of Service: August 11, 2024 Billing Provider: ANNETTE CERVANTES NP Common Visit Codes: [id number] INP/OBS CARE(HIGH) ANNETTE CERVANTES NP August 11, 2024 11:28
[2024-08-11] MEDS: LACTULOSE 20Gm/30ML SOLN PO ONE (13:11)
[2024-08-11] MEDS: cefTRIAXone 1GM/50ML D5W 50 ML IV SCH (13:12)
[2024-08-11] MEDS: SOD CHL 0.9%/ KCL 40MEQ 1,000 ML IV ONE (13:12)
--- NOTE | 2024-08-11 14:19 | DVH ---
CLINICAL INDICATION: Questionable foreign body in his right hand TECHNIQUE: 3 radiographic views of the right hand were obtained. Comparison: None FINDINGS/IMPRESSION: There is no evidence of acute fracture or dislocation. Intravenous catheter projects over the dorsum of the right hand. The visualized joint space is well maintained. The alignment is anatomical. There is no radiopaque foreign body.
[2024-08-11] MEDS: PANTOPRAZOLE 40 MG/10 ML VIAL INJ IV SCH (22:04)
[2024-08-11] MEDS: DOCUSATE SOD 100 MG CAP PO SCH (22:04)
[2024-08-11] MEDS: APIXABAN 5 MG TAB PO SCH (22:04)
[2024-08-12] VITALS (8 sets, daily range): BP systolic 92–126; BP diastolic 56–85; PULSE 52–62; RESP 16–48; TEMP 97.5–98.2; O2SAT 93–97
[2024-08-12 06:51] LABS: Basophils # (auto) 0 10 ^3/uL (0-0.2); Basophils % (auto) 0.4 % (0.0-2.0); Eosinophils # (auto) 0.1 10 ^3/uL (0-0.8); Eosinophils % (auto) 1.8 % (0.0-7.0); Hematocrit 43.9 % (41.0-53.0); Hemoglobin 14.7 g/dL (13.5-17.5); Lymphocytes # (auto) 2.7 10 ^3/uL (0.4-5.4); Lymphocytes % (auto) 33.3 % (10.0-50.0); Mean Corpuscular Hemoglobin 29.8 pg (28.0-32.0); Mean Corpuscular Hgb Conc. 33.4 g/dL (32.0-36.0); Mean Corpuscular Volume 89.1 fL (80.0-100.0); Monocytes # (auto) 0.8 10 ^3/uL (0-1.3); Monocytes % (auto) 9.3 % (0.0-12.0); Neutrophils # (auto) 4.5 10 ^3/uL (1.6-8.6); Neutrophils % (auto) 55.2 % (37.0-80.0); Platelet Count (auto) 156 10^3/uL (140-450); Red Blood Cells 4.93 10^6/uL (4.5-5.90); White Blood Cell 8.2 10^3/uL (4.4-10.8)
[2024-08-12 06:57] LABS: Anion Gap 8 (5-15); Carbon Dioxide 25 mmol/L (20-31); Potassium 3.6 mmol/L (3.5-5.1); Sodium 142 mmol/L (136-145)
[2024-08-12 06:59] LABS: Calcium 9.1 mg/dL (8.7-10.4)
[2024-08-12 07:03] LABS: Glucose 98 mg/dL (74-106)
[2024-08-12 07:04] LABS: BUN/Creatinine Ratio 9.6 (10.0-20.0)
[2024-08-12 07:07] LABS: Blood Urea Nitrogen 8 mg/dL (9-23); Chloride 109 mmol/L (98-107)
--- NOTE | 2024-08-12 15:45 | DVHPN2 ---
Subjective in bed resting Reviewed: Care Plan, H&P Changes from previous H/P or p: No Changes Eyes: No Pain, No Vision change, No Conjunctivae inflammation, No Eyelid inflammation, No Other, No Redness ENT: No Ear pain, No Ear discharge, No Nose pain, No Nose discharge, No Nose congestion, No Mouth pain, No Mouth swelling, No Throat pain, No Throat swelling, No Other Cardiovascular: No Chest Pain, No Palpitations, No Orthopnea, No Paroxysmal Noc. Dyspnea, No Edema, No Lt Headedness, No Other Respiratory: No Cough, No Dry, No Shortness of breath, No SOB with excertion, No Wheezing, No Hemoptysis, No Pleuritic Pain, No Sputum, No Other Gastrointestinal: Nausea, Vomiting, Abdominal Pain; No Diarrhea, No Constipation, No Melena, No Hematochezia, No Other Genitourinary: No Dysuria, No Frequency, No Incontinence, No Hematuria, No Retention, No Other Musculoskeletal: No other, No neck pain, No shoulder pain, No arm pain, No back pain, No hand pain, No leg pain, No foot pain Skin: No Rash, No Lesions, No Jaundice, No Bruising, No Other Objective Vitals Vital Signs Date Time Temp Pulse Resp B/P (MAP) Pulse Ox O2 Delivery O2 Flow Rate FiO2 08/12/24 13:00 97.8 55 17 104/57 (73) 95 97.8 08/12/24 08:00 Room Air* 0 21 Intake/Output Intake and Output 08/12/24 07:00 Intake Total 2570 ml Output Total 1325 ml Balance 1245 ml Intake Oral 1520 ml IV Total 1050 ml Output Urine Total 1325 ml # Voids 1 General Appearance: Alert, Oriented X3, Cooperative, No acute distress HEENT: PERRLA Cardiovascular: Normal S1, Normal S2 Musculoskeletal: Normal sensory function, Normal motor function Skin: Dry, Intact Psych/Mental Status: Mental status NL, Mood NL Medications Current Medications Medications Dose Ordered Sig/Naomi Route Start Time Stop Time Status Last Admin Dose Admin Acetaminophen/ Hydrocodone Bitart 1 tab Q4HP PRN PO 08/09/24 12:30 Ondansetron HCl 4 mg Q4HP PRN IV 08/09/24 12:30 08/10/24 21:53 4 MG Docusate Sodium 100 mg BIDPRN PRN PO 08/09/24 12:30 Acetaminophen 650 mg Q6HP PRN PO 08/09/24 12:30 08/10/24 13:22 650 MG Morphine Sulfate 2 mg Q4HPRN PRN IV 08/09/24 12:30 Fluoxetine HCl 20 mg DAILY PO 08/10/24 10:00 08/12/24 09:39 20 MG Lisinopril 5 mg DAILY PO 08/10/24 10:00 08/12/24 09:40 5 MG Atorvastatin Calcium 40 mg HS PO 08/09/24 22:00 08/11/24 22:04 40 MG Metronidazole 100 ml @ 100 mls/hr Q8HR IV 08/09/24 22:00 08/12/24 14:00 100 MLS/HR Meclizine HCl 25 mg [id number] PRN PO 08/09/24 18:00 08/12/24 09:48 25 MG Pantoprazole Sodium 40 mg BID IV 08/11/24 22:00 08/12/24 09:39 40 MG Apixaban 5 mg BID PO 08/11/24 22:00 08/12/24 09:40 5 MG Ceftriaxone Sodium 50 ml @ 100 mls/hr DAILY@09 IV 08/11/24 10:41 08/12/24 09:39 100 MLS/HR Docusate Sodium 100 mg BID PO 08/11/24 22:00 08/12/24 09:39 100 MG Laboratory Results Laboratory Tests 08/12/24 05:41 Chemistry Test 08/12/24 05:41 Calcium Level 9.1 mg/dL (8.7-10.4) Assessment/Plan Assessment/Plan -rule out acute CVA -rule out GI bleed -recent CVA -obesity -atrial fibrillation -primary hypertension -abdominal pain, rule out acute pathology including possible colitis/diverticulitis -? PFO Plan: Events: Patient states that he is feeling better. Abdominal pain has improved. No nausea and vomiting. CT scan of the abdomen pelvis reviewed. -continue Flagyl, add Rocephin -unable to perform MRI of the brain given patient reports shrapnel in his right hand with pain noted during previous MRI -three-view x-ray of right hand -physical therapy consultation : Pending -FOBT Advanced to mechanical soft diet -PPI -repeat labs in a.m. Total time spent with patient discussing and formulating plan of care: 35 minutes. Plan discussed with: Patient Date of Service: August 12, 2024 Billing Provider: MELL CHAVEZ MD Common Visit Codes: [id number] INP/OBS CARE(HIGH) MELL CHAVEZ MD August 12, 2024 15:45
[2024-08-13 05:00] VITALS: BP 125/79; PULSE 77; RESP 18; TEMP 98.3; O2SAT 97
[2024-08-13 09:00] VITALS: BP 125/80; PULSE 66; RESP 18; TEMP 98.3; O2SAT 96
[2024-08-13] MEDS ORDERED: AUG875T PO (10:58)
[2024-08-13 12:27] VITALS: BP 125/80; PULSE 66; RESP 18; TEMP 98.3; O2SAT 96
[2024-08-13 12:47] VITALS: BP 123/78; PULSE 63; RESP 18; TEMP 98.4; O2SAT 95
--- NOTE | 2024-08-13 13:36 | DVHDS2 ---
Discharge Summary Date of Admission August 09, 2024 at 12:29 Date of Discharge: August 13, 2024 Labs/Diagnostic Data: Laboratory Results Test 08/12/24 05:41 08/10/24 05:25 White Blood Count 8.2 10^3/uL (4.4-10.8) Red Blood Count 4.93 10^6/uL (4.5-5.90) Hemoglobin 14.7 g/dL (13.5-17.5) Hematocrit 43.9 % (41.0-53.0) Mean Corpuscular Volume 89.1 fL (80.0-100.0) Mean Corpuscular Hemoglobin 29.8 pg (28.0-32.0) Mean Corpuscular Hemoglobin Concent 33.4 g/dL (32.0-36.0) Red Cell Distribution Width 13.0 % (11.8-14.3) Platelet Count 156 10^3/uL (140-450) Mean Platelet Volume 10.8 fL (6.9-10.8) Neutrophils (%) (Auto) 55.2 % (37.0-80.0) Lymphocytes (%) (Auto) 33.3 % (10.0-50.0) Monocytes (%) (Auto) 9.3 % (0.0-12.0) Eosinophils (%) (Auto) 1.8 % (0.0-7.0) Basophils (%) (Auto) 0.4 % (0.0-2.0) Neutrophils # (Auto) 4.5 10 ^3/uL (1.6-8.6) Lymphocytes # (Auto) 2.7 10 ^3/uL (0.4-5.4) Monocytes # (Auto) 0.8 10 ^3/uL (0-1.3) Eosinophils # (Auto) 0.1 10 ^3/uL (0-0.8) Basophils # (Auto) 0 10 ^3/uL (0-0.2) Nucleated Red Blood Cells 0.0 % Sodium Level 142 mmol/L (136-145) Potassium Level 3.6 mmol/L (3.5-5.1) Chloride Level 109 mmol/L (98-107) Carbon Dioxide Level 25 mmol/L (20-31) Anion Gap 8 (5-15) Blood Urea Nitrogen 8 mg/dL (9-23) Creatinine 0.83 mg/dL (0.700-1.30) Glomerular Filtration Rate Calc 103 mL/min (>90) BUN/Creatinine Ratio 9.6 (10.0-20.0) Serum Glucose 98 mg/dL (74-106) Calcium Level 9.1 mg/dL (8.7-10.4) Hemoglobin A1c 5.4 % A1C (<5.7) Total Bilirubin 0.6 mg/dL (0.2-1.0) Aspartate Amino Transferase (AST) 16 U/L (13-40) Alanine Aminotransferase (ALT) 33 U/L (7-40) Alkaline Phosphatase 66 U/L (46-116) Total Protein 6.0 g/dL (5.7-8.2) Albumin 4.0 g/dL (3.2-4.8) Hepatitis B Surface Antigen Negative (Negative) Hepatitis C Antibody Negative (Negative) Other Laboratory Tests 08/12/24 05:41 Brief Hx & Hospital Course: J Carlos Rosenthal is a 54-year-old male with past medical history of atrial fibrillation, hypertension, CVA in June 2023, hyperlipidemia, and depression, who came to the hospital for abdominal pain. Patent has a history of CVA in June 2023. He has residual right sided weakness and difficulty speaking. The patient was able to tell me that he was vomiting this morning, his head hurts, and he is dizzy. When asking specifics about what happened this morning or what medications he takes he is having a hard time answering me. I called and spoke with his , who told me that she was woken up about 0530 to him vomiting. He told her to call EMS, that he was not feeling well. She states that the emesis did not appear to be bloody or coffee ground in color. She states he has not had diarrhea. She also states that he ambulates with a cane at home, and that he will have intermittent headaches and dizziness at home. She was able to go over his medications with me as well and states he takes Eliguis due to atrial fibrillation and the stroke. He follows with [facility] and is being scheduled for a watchman procedure to help prevent further strokes. Treated for diverticulitis CT C spine with no abnormalities Condition at Discharge: Good Final Diagnosis/Problems List diverticulitis gastritis Discharge Disposition: Home Discharge Instruct/Medications Diet: Regular Activity: No Restrictions, As Tolerated Follow Up/Referral: PCP in 7 days Medications: same home medications Discharge Statement: "Patient was advised to return to the ER or call 911 if any headaches, dizziness, shortness of breath, chest pain, abdominal pain, bleeding, fevers, or worsening of medical condition. Patient was counseled about treatment plan, medications, possible side effects, patientverbalized understanding. All questions were answered to the best of my ability. This discharge took greater then 30 minutes in planning, reviewing documentation, counseling the patient, and discussing with other team members." ASSESSMENT ASSESSMENT Assessment diverticulitis gastritis Date of Service: August 13, 2024 Billing Provider: MELL CHAVEZ MD Common Visit Codes: [id number] DISCH DAY >30min MELL CHAVEZ MD August 13, 2024 13:36
== END 2024-08-13 13:50 | disposition home or self-care (01) | DRG 241 ==
LOC: ER 06:45 → EDBD 06:45 → OVERFLOW 12:29 → EAST 08-10 18:35
PROVIDERS: ADMIT Nurse Practitioner Acute Care; ATTEND Nurse Practitioner Acute Care
DX: K29.70 Gastritis, unspecified, without bleeding (principal); E11.65 Type 2 diabetes mellitus with hyperglycemia; I48.91 Unspecified atrial fibrillation; E66.9 Obesity, unspecified; K57.32 Diverticulitis of large intestine without perforation or abscess without bleeding; E78.5 Hyperlipidemia, unspecified; I10 Essential (primary) hypertension; F32.A Depression, unspecified; Z86.73 Personal history of transient ischemic attack (TIA), and cerebral infarction without residual deficits; Z79.01 Long term (current) use of anticoagulants; Z79.899 Other long term (current) drug therapy; Z68.31 Body mass index [BMI] 31.0-31.9, adult
CPT/HCPCS: 36415; 70450; 73130; 74177; 76700; 80048; 80053; 83036; 85014; 85018; 85025; 86803; 87340; 97110; 97116; 97163; 97530; G0378; J1885; J2405; J2470; J3490